=== PATIENT | male | born 1985 | race Two or more races ===

== ENCOUNTER 2016-07-27 20:35 | Emergency (ER) | payer SELFPAY ==
[~2016-07-27] VITALS: Ht 180.3 cm; Wt 74.2 kg
[2016-07-27 21:29] VITALS: BP 125/70; PULSE 99; RESP 16; TEMP 98.1; O2SAT 98
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
[2016-07-27] MEDS ORDERED: LIDOCAINE HCL 2% JELLY 5 ML SYRINGE TOPICAL ONE (22:30)
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
[2016-07-27] MEDS ORDERED: TETANUS/DIPHTHERIA TOXOID ADULT 0.5 ML VIAL IM ONE (22:45)
[2016-07-27] MEDS ORDERED: AMOXICILLIN/CLAVULANATE K 875 MG TAB PO ONE (22:45)
[2016-07-27] MEDS ORDERED: predniSONE 20 MG TAB PO ONE (22:45)
[2016-07-27] MEDS ORDERED: MEDR4PAK PO (22:46)
[2016-07-27] MEDS ORDERED: AUGM875T PO (22:46)
== END 2016-07-27 23:06 | disposition home or self-care (01) ==
LOC: PHED 20:35
DX: S00.33XA Contusion of nose, initial encounter (principal); R22.0 Localized swelling, mass and lump, head; R09.81 Nasal congestion; Z23 Encounter for immunization; Z72.0 Tobacco use; W50.0XXA Accidental hit or strike by another person, initial encounter; Y93.71 Activity, boxing
CPT/HCPCS: 70160; 90471; 90714; 99283; J7512